=== PATIENT | female | born 1975 | race Caucasian/White ===

== ENCOUNTER 2019-10-30 13:10 | Inpatient (IN) | payer MEDICARE, MEDICAID ==
[2019-10-30 13:52] LABS: APPEARANCE,URINE SLIGHTLY-CLOUDY; BILIRUBIN,URINE NEGATIVE (NEGATIVE); COLOR,URINE YELLOW; GLUCOSE, URINE NEGATIVE (NEGATIVE); KETONES,URINE 20 mg/dL (NEGATIVE); LEUKOCYTE ESTERASE,URINE LARGE (NEGATIVE); NITRITE,URINE NEGATIVE (NEGATIVE); PROTEIN,URINE 30 mg/dL (NEGATIVE); URINE SPECIFIC GRAVITY 1.008; UROBILINOGEN,URINE NEGATIVE mg/dL (<2.0)
[2019-10-30 14:08] LABS: URINE AMPHETAMINES SCREEN NEGATIVE; URINE BARBITURATES SCREEN NEGATIVE; URINE BENZODIAZEPINES SCREEN NEGATIVE; URINE COCAINE SCREEN NEGATIVE; URINE MARIJUANA (THC) SCREEN NEGATIVE; URINE METHADONE SCREEN NEGATIVE; URINE PHENCYCLIDINE SCREEN NEGATIVE
[2019-10-30 14:24] LABS: ABSOLUTE EOSINOPHILS # (AUTO) 0.1 10^3/uL (0.0-0.6); ABSOLUTE LYMPHOCYTES (AUTO) 1.1 10^3/uL (0.5-4.7); ABSOLUTE MONOCYTES (AUTO) 0.8 10^3/uL (0.1-1.4); ABSOLUTE NEUT (AUTO) 12.6 10^3/uL (1.7-8.2); BASOPHILS % (AUTO) 0.3 % (0-2); EOSINOPHILS % (AUTO) 0.9 % (0-6); HEMATOCRIT 35.3 % (36.0-47.0); HEMOGLOBIN 12.1 g/dL (12.0-15.5); LYMPHOCYTES % (AUTO) 7.7 % (13-45); MEAN CORPUSCULAR HGB CONC 34.2 g/dL (32.0-36.0); MEAN CORPUSCULAR VOLUME 88 fl (80-97); MONOCYTES % (AUTO) 5.6 % (3-13); PLATELET COUNT 283 10^3/uL (150-450); RED BLOOD COUNT 4.03 10^6/uL (3.72-5.28); RED CELL DISTRIBUTION WIDTH 14.3 % (11.5-14.0); SEGMENTED NEUTROPHILS % (AUTO) 85.5 % (42-78); TOTAL CELLS COUNTED % (AUTO) 100 %; WHITE BLOOD COUNT 14.8 10^3/uL (4.0-10.5)
--- NOTE | 2019-10-30 15:18 | RADIOLOGY REPORT (SQ) ---
EXAM DESCRIPTION: U/S OB 14+ TRNABD 1GES W/O DOP IMAGES COMPLETED DATE/TIME: 10/30/2019 2:53 pm REASON FOR STUDY: no care COMPARISON: None. TECHNIQUE: Static and Dynamic grayscale imaging performed of gravid uterus using transabdominal appr oach. Additional selected color Doppler and spectral images recorded. All stored on PACS. LIMITATIONS: None. FINDINGS: FETUSES SEEN:1 EGA: 39 weeks 3 days Calculated using BPD,FL,HC,AC documented on images. Clinical dates unknown CHARLINE: 11/03/2019 EFW: 8 lb 3 oz PERCENTILE: Not calculated JAIME: 6.5 cm PLACENTA: Anterior and fundal. Grade 2: PRESENTATION: Cephalic. ANATOMY: HEART RATE: 157 beats per minute. FOUR CHAMBER HEART: Not confirmed THREE VESSEL CORD: Yes. CORD INSERTION: Visualized. KIDNEYS AND BLADDER: Visualized. Appear normal. STOMACH: Visualized. Appears normal. SPINE: Poorly seen. BRAIN AND LATERAL VENTRICLES: Not seen. OTHER: No other significant finding. MATERNAL ADNEXA: Maternal ovaries not visualized. CERVICAL LENGTH: Not seen. OTHER: No other significant finding. IMPRESSION: LIVING INTRAUTERINE . ESTIMATED GESTATIONAL AGE 39 weeks 3 days Anatomical survey was limited because of the advanced gestation. Trimester of : Third trimester - 28 weeks to delivery. TECHNICAL DOCUMENTATION: JOB ID: [id number] [employer]- All Rights Reserved Reading location - IP/workstation name: [email or web address]
[2019-10-30] MEDS ORDERED: RINGERS SOLUTION,LACTATED 1,000 ML IV PRN ×2 (15:35→23:52)
[2019-10-30] MEDS ORDERED: CEFAZOLIN 2 GM/D5W RTU 2 GM/50 ML RTUPB IV ONE ×3 (16:12→22:37)
--- NOTE | 2019-10-30 16:31 | Admission Physical ---
Datetime Report Generated by CPN: 10/30/2019 16:30 CURRENT ADMISSION Chief Complaint: Uterine Contractions; Suspected Ruptured Membranes Indication for Induction: Not Applicable Admit Impression : Term, Intrauterine ; Active Labor Admit Impression- Other: ? SROM 2 days ago, actim prom neg. vag exam=possible meconium Admit Plan: Admit to Unit; Initiate Labor Protocol ALLERGIES Medication Allergies: Penicillins (10/30/2019) OBSTETRICAL HISTORY EDC: 10/06/2019 00:00 : 3 Para: 2 Term: 2 : 0 SAB: 0 IAB: 0 Livin PHYSICAL EXAM General: Normal HEENT: Normal Neurologic: Normal Thyroid: Deferred Heart: Normal Lungs: Normal Breast: Deferred Back: Normal Abdomen: Normal Genitourinary Exam: Normal Extremities: Normal DTRs: Deferred Pelvic Type: Adequate Physical Exam Comments: pelvis proven to 7lb Vital Signs: Reviewed VAGINAL EXAM Dilatation: 4 Effacement: 80 Station: -1 Contraction Comments: q 5 mins MEMBRANES Pooling: Positive FETUS A EGA: 43.3 Monitoring: External US FHR- Baseline: 135 Variability: Moderate 6-25bpm Accelerations: 15X15 Decelerations: None; Early; Late; Variable FHR Category: Category II FHR Comments: ONLY SONO WAS DONE TODAY Estimated Weight (gm): 3600 Presentation: Vertex Presentation- Other: by sono Admit Comment: WITH PREVIOUS C/S WITH G1 AND SUCESSFUL WITH G2, NO CARE, GBS UNKNOWN. 43W3D BY LMP AND SONO TODAY SHOWS 39W3D. ACTIM PROM NEG, HOWEVER FLUID FROM VAGINA APPEARS MEC. REPORTS STARTED LEAKING 3 DAYS AGO. POOR HISTORIAN; WAS PLANNING UNATTENDED HOME BUT PAIN BECAME TOO INTENSE. DENIES MEDICAL HISTORY BESIDES C/S. ADMITTED-P: ANCEF FOR GBS PROPHYLAXIS, C/W DR GARCIA, ANTICIPATE INFORMED CONSENT Assignment: Jayden Garcia MD Signature: with User ID: [email or web address] : with User ID: [email or web address]
[2019-10-30] MEDS ORDERED: FENTANYL/BUPIVACAINE/NS/PF 300 MCG/150 ML RTUINJ EPI ONE (16:57)
[2019-10-30] MEDS ORDERED: EPHEDRINE SULFATE INJ 50 MG/1 ML AMPULE ONE ×2 (16:57→22:53)
[2019-10-30] MEDS ORDERED: ROPIVACAINE HCL 0.2% INJ/PF (2 MG/ML) 20 ML SDV ONE (16:58)
[2019-10-30 17:01] LABS: CHLAM PCR NOT DETECTED (NOT DETECT)
[2019-10-30] MEDS ORDERED: LIDOCAINE 1% INJ-PF (10 MG/ML) 30 ML SDV ONE (17:56)
[2019-10-30] MEDS ORDERED: OXYTOCIN 10 UNIT/ML VIAL ONE ×2 (17:56→22:53)
[2019-10-30] MEDS ORDERED: MISOPROSTOL 0.2 MG TABLET ONE (17:56)
[2019-10-30] MEDS ORDERED: OXYTOCIN/0.9 % SODIUM CHLORIDE 0 UNIT/0 ML RTUINJ ONE (17:56)
[2019-10-30] MEDS ORDERED: CITRIC ACID/SODIUM CITRATE ORAL SOLN 15 ML UDCUP ONE (22:37)
[2019-10-30] MEDS ORDERED: KETOROLAC TROMETHAMINE INJ/PF 30 MG/1 ML SDV ONE (22:53)
[2019-10-30] MEDS ORDERED: ONDANSETRON HCL INJ/PF 4 MG/2 ML SDV ONE (22:53)
[2019-10-30] MEDS ORDERED: ACETAMINOPHEN 1,000 MG/100 ML RTUPB IV ONE (22:53)
[2019-10-30] MEDS ORDERED: MIDAZOLAM 2 MG/2 ML INJ ONE (22:53)
[2019-10-30] MEDS ORDERED: OXYTOCIN/0.9 % SODIUM CHLORIDE 30 UNIT/500 ML RTUINJ ONE (22:53)
[2019-10-30] MEDS ORDERED: FENTANYL CITRATE INJ/PF 100 MCG/2 ML AMPUL ONE (22:53)
[2019-10-30] MEDS ORDERED: LIDOCAINE 2% INJ-PF (20 MG/ML) 10 ML AMPUL ONE (22:54)
[2019-10-30] MEDS ORDERED: DIPH/PERTUSS(ACELL)/TETANUS VAC/PF 0.5 ML SYR (>=10YO) IM PRN (23:52)
[2019-10-30] MEDS ORDERED: MORPHINE SULFATE 10 MG/ML INJ IM PRN (23:52)
[2019-10-30] MEDS ORDERED: ACETAMINOPHEN 1,000 MG/100 ML RTUPB IV PRN (23:52)
[2019-10-30] MEDS ORDERED: OXYTOCIN/0.9 % SODIUM CHLORIDE 30 UNIT/500 ML RTUINJ IV PRN (23:52)
[2019-10-30] MEDS ORDERED: MEASLES,MUMPS&RUBELLA VACC/PF 0.5 ML VIAL SUBCUT PRN (23:52)
[2019-10-30] MEDS ORDERED: PROMETHAZINE HCL INJ 25 MG/1 ML VIAL IV PRN (23:52)
[2019-10-30] MEDS ORDERED: ACETAMINOPHEN 325 MG TABLET PO PRN (23:52)
--- NOTE | 2019-10-30 23:58 | Operative Report ---
Operative Report DATE OF SURGERY: 10/30/19 PREOPERATIVE DIAGNOSIS: IUP at term no care on reassuring strip were repetitive late decelerations meconium POSTOPERATIVE DIAGNOSIS: Same OPERATION: Repeat low transverse section delivery of viable male 8 pounds 12 ounces SURGEON: KHALIDA KHOURY ANESTHESIA: Epidural TISSUE REMOVED OR ALTERED: Placenta COMPLICATIONS: Uterine laceration extending into the right lower uterine segment ESTIMATED BLOOD LOSS: Approximately 1400 cc PROCEDURE: The patient was taken to the operating room where spinal anesthesia was obtained and found to be adequate. She was then prepped and draped in the normal sterile fashion and placed in the dorsal supine position with a leftward tilt. A Pfannenstiel skin incision was then made and carried through to the underlying layers of the fascia with the scalpel. The fascia was incised in the midline and the incision extended laterally with the Ornelas scissors. The superior aspect of the fascial incision was then grasped with Denia clamps elevated and the underlying rectus muscles dissected off bluntly. Attention was then turned to the inferior aspect of the fascial incision which in a similar fashion was grasped, tented up with Hari clamps, and the rectus muscles dissected off bluntly. The rectus muscles were then in the midline and the peritoneum at the amount identified and entered bluntly. The peritoneal incision was then extended superiorly and inferiorly with good visualization of the bladder. [The bladder blade was inserted and the vesicouterine peritoneum identified grasped with Irish pickups and entered sharply with the Metzenbaum scissors. His incision was then extended laterally with the Metzenbaum scissors and a bladder flap created digitally. The bladder blade was then reinserted and the lower uterine segment incised in a transverse fashion with the scalpel. The uterine incision was then extended bluntly. The bladder blade was removed and the infant's head was delivered from cephalic presentation atraumatically.. Thick meconium was encountered. The nose and mouth were suctioned and the cord doubly clamped and cut. And the was handed off to waiting pediatricians. The placenta was then delivered manully and the uterus exteriorized and cleared of all clots and debris. The uterine incision was then repaired with 1-0 Vicryl in a running locked fashion. There was an extension into the right lower uterine segment. The laceration was identified and this was closed with a separate suture. A second layer of the same suture was used to obtain hemostasis via imbrication of the initial layer. The uterus was returned to the patient's abdomen. The gutters were cleared of all clots and debris. All operative sites were noted to be hemostatic. The fascia was reapproximated with 0 Vicryl in a running fashion from each lateral edge to the midline. The patient tolerated the procedure well. Sponge lap needle and instrument counts are correct -2. 2 g of Ancef were given prior to skin incision. The patient was taken to the recovery area awake and in stable condition.
[2019-10-31] MEDS ORDERED: CEFAZOLIN 1 GM/D5W RTU 1 GM/50 ML RTUPB IV ONE (01:32)
[2019-10-31] MEDS: CEFAZOLIN 1 GM/D5W RTU 1 GM/50 ML RTUPB IV SCH ×4 (01:38→12:47)
--- NOTE | 2019-10-31 02:03 | Warning Signs in Babies ---
VOD Warning Signs Datetime Report Generated by [facility]: 10/31/2019 02:03 VOD#608 -Warning Signs in Babies: Viewed with Parent(s)/Family (10/31/2019 01:05:Su Shearer RN)
--- NOTE | 2019-10-31 05:04 | Birth Certificate Data ---
Cert Data Datetime Report Generated by CPN: 10/31/2019 05:03 CERTIFICATE DATA 47a. Care: No (10/30/2019 13:29:Edgar Araiza RN) 47d. Number of Visits: 0 (10/30/2019 13:29:Edgar Araiza RN) 48a. Number of Prev Live Births: 2 (10/30/2019 13:29:Edgar Araiza RN) 48b. Now Livin (10/30/2019 13:29:Belinda Francisco RN) 48c. Live Births Now : 0 (10/30/2019 13:29:QS system process) 48d. Date of Last Live : 06/25/2017 00:00 (10/30/2019 13:29:Edgar Araiza RN) 48e. Losses: 0 (10/30/2019 13:29:Edgar Araiza RN) RISK FACTORS IN THIS 49a. Diabetes: No (10/30/2019 13:29:Edgar Araiza RN) Type of Diabetes: Type II - NIDDM (10/30/2019 13:29:Edgar Araiza RN) 49b. Hypertension: No (10/30/2019 13:29:Edgar Araiza RN) 49c. Previous Births: 0 (10/30/2019 13:29:Belinda Francisco RN) 49d. Stillborns: No (10/30/2019 13:29:Edgar Araiza RN) 49d. IUGR: Unknown (10/30/2019 13:29:Edgar Araiza RN) 49e. Infertility Treatment: No (10/30/2019 13:29:Edgar Araiza RN) 49f. Previous Cesareans: 1 (10/30/2019 13:29:Edgar Araiza RN) Mother's Height 50b. Height Inches: 64 (10/31/2019 04:31:QS system process) Mother's Weight 51b. Weight at Delivery (lbs): 229 (10/31/2019 04:31:QS system process) 52. Dt Last Normal Menses Began: 02/27/2019 00:00 (10/30/2019 13:29:Belinda Francisco RN) Infections Present/Treated 53a. Gonorrhea: No (10/30/2019 13:29:Edgar Araiza RN) Results this Hospital Visit : Negative (10/30/2019 13:29:Irene Willis RN) 53b. Syphilis: No (10/30/2019 13:29:Edgar Araiza RN) 53c. Chlamydia: No (10/30/2019 13:29:Edgar Araiza RN) Results this Hospital Visit: Negative (10/30/2019 13:29:Irene Willis RN) 53d. Hepatitis B: No (10/30/2019 13:29:Edgar Araiza RN) 53h. Mother Tested for HBsAG: Yes (10/30/2019 13:29:Irene Willis RN) 53i. Date Tested: 10/30/2019 00:00 (10/30/2019 13:29:Irene Willis RN) Obstetric Procedures 54a, b, c. Obstetric Procedures: None (10/30/2019 13:29:Edgar Araiza RN) Cigarette Smoking 55a. 3 Months Before Preg - Ci (10/30/2019 13:29:Edgar Araiza RN) 55a. Packs: 0 (10/30/2019 13:29:Edgar Araiza RN) 55b. 1st Trimester of Preg- Ci (10/30/2019 13:29:Edgar Araiza RN) 55b. Packs: 0 (10/30/2019 13:29:Edgar Araiza RN) 55c. 2nd Trimester of Preg- Ci (10/30/2019 13:29:Edgar Araiza RN) 55c. Packs: 0 (10/30/2019 13:29:Edgar Araiza RN) 55d. 3rd Trimester of Preg- Ci (10/30/2019 13:29:Edgar Araiza RN) 55d. Packs: 0 (10/30/2019 13:29:Edgar Araiza RN) Onset of Labor 56b. Precipitous Labor <3 Hrs: 5 (10/30/2019:29:QS system process) 56c. Prolonged Labor > 20 Hrs: 5 (10/30/2019 13:29:QS system process) 57a. Induction of Labor: N/A (10/30/2019::Su Shearer RN) 57c. Non-Vertex Presentation A: Vertex (10/30/2019:Irene Willis RN) 57d. Steroids - Lung Mat: None (10/30/2019::Su Shearer RN) 57d. Steroids - Lung Mat: Not Applicable (10/30/2019:29:Su Shearer RN) 57e. Antibiotics During Labor: 10/30/2019 16:26 (10/30/2019::Su Shearer RN) 57f. Mat [place] or Temp >100.4: 99.1 (10/30/2019::Irene Willis RN) 57g. Moderate/Heavy Meconium: Light Meconium (10/30/2019:29:Irene Willis RN) 57h. Intolerance of Labor: Nonreassuring Status (10/30/2019::Irene Willis RN) 57i. Epidural/Spinal Anesthesia: Epidural (10/30/2019 13:29:Su Shearer RN) Method of Delivery 58a. Forceps - Unsuccessful A: N/A (10/30/2019 13:29:Irene Willis RN) 58b. Vacuum - Unsuccessful A: N/A (10/30/2019 13:29:Irene Willis RN) 58c. Presentation at 58c. Presentation at - A : Vertex (10/30/2019 13:29:Irene Willis RN) 58c. Presentation at - A : N/A (10/30/2019 13:29:Su Shearer RN) 58c. Presentation at - A : Cephalic (10/30/2019 18:01:Edgar Araiza RN) Final Route and Method of Del 58d. Baby A Route/Delivery: (10/30/2019 13:29:Irene Willis RN) 58e. Trial of Labor Attempted: Yes (10/30/2019 13:29:Su Shearer RN) 58e. Trial of Labor Attempted A: Failed (10/30/2019 13:29:Irene Willis RN) 58e. Trial of Labor Attempted B: N/A (10/30/2019 13:29:Su Shearer RN) Maternal Morbidity 59b. 3rd or 4th Degree Lacs: None (10/30/2019 13:29:Irene Willis RN) Birthweight Baby A: 3970 (10/30/2019 13:29:Tory Pavon RN) 60a. Pounds : 8 (10/30/2019 13:29:QS system process) 60b. Ounces: 12 (10/30/2019 13:29:QS system process) 61. GA at Delivery Baby A: 43.4 (10/30/2019 13:29:Irene Willis RN) : Post Term- >= 42 Weeks (10/30/2019 13:29:QS system process) 62a. 5 Minute Baby A: 9 (10/30/2019 13:29:QS system process)
--- NOTE | 2019-10-31 05:04 | Delivery Summary ---
Del Sum A-C Datetime Report Generated by CPN: 10/31/2019 05:03 DELIVERY PERSONNEL DELIVERY PERSONNEL: [id number] Delivery Doctor:: Jayden Garcia MD GLUE JOINTER FEEDER:: Ricardo Aguilar, GLUE JOINTER FEEDER Iron Installer:: Su Shearer, RN Claim Inspector/PATTERN LAYOUT WORKER: Clare Green, ST Claim Inspector/PATTERN LAYOUT WORKER: Jose Alfredokeaton Clifton, CREDENTIALING MANAGER MATERNAL INFORMATION Delivery Anesthesia: Epidural Medications After Delivery: Pitocin 30 Units in 500ml NS/D5W Delivery QBL: 945 Maternal Complications: None LABOR SUMMARY EDC: 10/06/2019 00:00 No. Babies in Womb: 1 Attempted: Yes Labor Anesthesia: Epidural LABOR INFORMATION Reason for Induction: Not Applicable Onset of Labor: 10/30/2019 18:01 Oxytocin: N/A Group B Beta Strep: unknown Antibiotics # of Doses: 1 Antibiotics Time of Last Dose: 10/30/2019 16:26 Name of Antibiotic Given: cefazolin Steroids Given: None Reason Steroids Not Administered: Not Applicable MEMBRANES Membranes Rupture Method: Spontaneous Amniotic Fluid Color: Light Meconium Amniotic Fluid Amount: Scant Amniotic Fluid Odor: Normal STAGES OF LABOR Stage 3 hr: 0 Stage 3 min: 1 Total Time in Labor hr: 5 Total Time in Labor min: 19 VAGINAL DELIVERY Episiotomy: None Laceration #1: None Laceration Extension #1: N/A Laceration Repair: Not Applicable Sponge Count Correct: N/A Sharps Count Correct: N/A CSECTION DELIVERY Primary Indication: Nonreassuring Status CSection Urgency: Non-Scheduled CSection Incidence: Repeat Labor: Labor Elective: Failed CSection Incision: Lower Uterine Transverse BABY A INFORMATION Delivery Date/Time: 10/30/2019 23:19 Method of Delivery: Nurse Controlled Delivery: No Born in Route : No : Failed Forceps: N/A Vacuum Extraction: N/A Shoulder Dystocia : No PRESENTATION/POSITION BABY A Presentation: Cephalic Cephalic Presentation: Vertex Breech Presentation: N/A PLACENTA INFORMATION BABY A Placenta Delivery Time : 10/30/2019 23:20 Placenta Method of Delivery: Manual Removal Placenta Status: Delivered SCORES BABY A Heart Rate 1 min: >100 bpm Resp Effort 1 min: Slow, Irregular Reflex Irritability 1 min: Cough or Sneeze or Pulls Away Muscle Tone 1 min: Active Motion Color 1 min: Body [place], Extremities Blue SCORE 1 MIN: 8 Heart Rate 5 min: >100 bpm Resp Effort 5 min: Good Cry Reflex Irritability 5 min: Cough or Sneeze or Pulls Away Muscle Tone 5 min: Active Motion Color 5 min: Body [place], Extremities Blue SCORE 5 MIN: 9 INFANT INFORMATION BABY A Gestational Age at Delivery: 43.4 Gestational Status: Post Term- >= 42 Weeks Infant Outcome : Liveborn Condition : Stable Infant Sex: Male IDENTIFICATION BABY A Infant Verification Date/Time: 10/31/2019 00:12 ID Band Number: [id number] Mother's Name Verified: Yes Infant RN Verifying : H. Librado, RN and M. Shearer, RN WEIGHT/LENGTH BABY A Infant Birthweight (gm): 3970 Infant Weight (lb): 8 Infant Weight (oz): 12 Infant Length (in): 22.00 Infant Length (cm): 55.88 CORD INFORMATION BABY A No. Cord Vessels: 3 Nuchal Cord : N/A Cord Blood Taken: Yes-For Eval (Mom's Blood Type - or O+) Suction: Mouth ASSESSMENT BABY A Infant Complications: Multiple Late Decels; Meconium Physical Findings at Delivery: Caput Succedaneum; Other Infant Respirations: Appears Normal Skin to Skin: Yes Infant Care By: Lizabeth Pavon RN Transferred To: [place] [facility] BABY B INFORMATION : N/A SIGNATURES Signature: with User ID: [email or web address] : I was personally available for consultation and serving as supervising physician for the MLP.
[2019-10-31] MEDS ORDERED: ACETAMINOPHEN 325 MG TABLET ONE (06:27)
[2019-10-31] MEDS ORDERED: KETOROLAC TROMETHAMINE INJ/PF 30 MG/1 ML SDV ONE (07:26)
[2019-10-31] MEDS ORDERED: MORPHINE SULFATE 10 MG/ML INJ ONE (07:26)
[2019-10-31] MEDS: KETOROLAC TROMETHAMINE INJ/PF 30 MG/1 ML SDV IV SCH ×2 (07:29→13:50)
[2019-10-31] MEDS ORDERED: MORPHINE SULFATE 10 MG/ML INJ IV PRN (07:31)
[2019-10-31 08:38] LABS: HEPATITIS C VIRUS AB <0.1 s/co ratio (0.0-0.9)
[2019-10-31 08:43] LABS: HEPATITS B SURFACE ANTIGEN Negative (Negative)
[2019-10-31] MEDS: DOCUSATE SODIUM 100 MG CAPSULE PO SCH ×2 (09:16→17:15)
[2019-10-31] MEDS: PRENATAL VITAMIN W DHA CAPSULE PO SCH (09:16)
--- NOTE | 2019-10-31 12:36 | PDOC PROGRESS REPORT ---
Subjective-OB Progress Note for:: 10/31/19 Subjective: Pt doing well, no concerns. Shehas FC to BSD, has not been out of bed yet. Denies pain, reports reg diet. Physical Exam (OB) Vital Signs: Temp Pulse Resp BP Pulse Ox 97.5 F 79 18 114/69 100 10/31/19 08:15 10/31/19 08:15 10/31/19 08:15 10/31/19 08:15 10/31/19 08:15 Intake & Output 10/30/19 10/31/19 11/01/19 06:59 06:59 06:59 Intake Total 350 Balance 350 Weight 103.6 kg - Dressing Removed: No Incision: Well Approximated Closure Type: Pressure - Maternal Morbidity 59. Maternal Morbidity (serious complications experinced by the mother associated with labor and delivery: None of the above - Lochia Lochia Amount: Scant < 10 ml - Abdomen Description: Tender, Soft Hernia Present: No Fundal Description: Firm, Midline Fundal Height: u/u - u/2 Objective-Diagnostic Laboratory: 10/30/19 14:01 10/30/19 10/30/19 10/30/19 13:35 14:01 14:01 WBC 14.8 H RBC 4.03 Hgb 12.1 Hct 35.3 L MCV 88 MCH 30.0 MCHC 34.2 RDW 14.3 H Plt Count 283 Seg Neutrophils % 85.5 H Urine Color YELLOW Urine Appearance SLIGHTLY-CLOUDY Urine pH 7.0 Ur Specific [place] 1.008 Urine Protein 30 H Urine Glucose (UA) NEGATIVE Urine Ketones 20 H Urine Blood LARGE H Urine Nitrite NEGATIVE Ur Leukocyte Esterase LARGE H Blood Type O POSITIVE Antibody Screen NEGATIVE Assessment and Plan(PN) - Assessment and Plan (1) Failed trial of labor following previous , delivered Is this a current diagnosis for this admission?: Yes (2) History of delivery Is this a current diagnosis for this admission?: Yes (3) No care in current Qualifiers: Trimester: first trimester Qualified Code(s): O09.31 - Supervision of with insufficient care, first trimester Is this a current diagnosis for this admission?: Yes (4) Non-reassuring electronic monitoring tracing Is this a current diagnosis for this admission?: Yes (5) S/P repeat low transverse Is this a current diagnosis for this admission?: Yes - Time Spent with Patient Time with patient: Less than 15 minutes Medications reviewed and adjusted accordingly: Yes - Disposition Anticipated Discharge Disposition: Home, Self Care Anticipated Discharge Timeframe: within 24 hours
[2019-10-31] MEDS: OXYCODONE-ACETAMINOPHEN 5-325 MG TABLET PO PRN ×3 (12:50→23:51)
[2019-10-31] MEDS: SIMETHICONE 80 MG TAB.CHEW PO PRN (13:50)
[2019-10-31] MEDS: IBUPROFEN 800 MG TABLET PO SCH (23:50)
[2019-11-01] MEDS: OXYCODONE-ACETAMINOPHEN 5-325 MG TABLET PO PRN ×3 (04:00→19:00)
[2019-11-01] MEDS: IBUPROFEN 800 MG TABLET PO SCH ×3 (05:08→18:59)
[2019-11-01] MEDS: SIMETHICONE 80 MG TAB.CHEW PO PRN (09:29)
[2019-11-01] MEDS: PRENATAL VITAMIN W DHA CAPSULE PO SCH (09:29)
[2019-11-01] MEDS: DOCUSATE SODIUM 100 MG CAPSULE PO SCH ×2 (09:30→19:01)
--- NOTE | 2019-11-01 11:22 | PDOC PROGRESS REPORT ---
Subjective-OB Progress Note for:: 11/01/19 Subjective: Pt doing well, reports light bleeding, + flatus, reg diet and no difficulty voiding. No concerns. Physical Exam (OB) Vital Signs: Temp Pulse Resp BP Pulse Ox 97.7 F 67 16 109/63 99 11/01/19 07:15 11/01/19 07:15 11/01/19 07:15 11/01/19 07:15 11/01/19 07:15 Intake & Output 10/31/19 11/01/19 11/02/19 06:59 06:59 06:59 Intake Total 1150 Output Total 1750 Balance -600 Weight 103.6 kg - Dressing Removed: No Incision: Dressing Closure Type: pressure - Maternal Morbidity 59. Maternal Morbidity (serious complications experinced by the mother associated with labor and delivery: None of the above - Lochia Lochia Amount: Small 10-25 ml Lochia Color: Rubra/Red - Abdomen Description: Soft Hernia Present: No Fundal Description: Firm, Midline Fundal Height: u/u - u/2 Objective-Diagnostic Laboratory: 10/30/19 15:12 Vaginal/Anorectal Group B Streptococcus Culture - Final GROUP B BETA HEMOLYTIC STREPTOCOCCUS RECOVERED Assessment and Plan(PN) - Assessment and Plan (1) Failed trial of labor following previous , delivered Is this a current diagnosis for this admission?: Yes (2) History of delivery Is this a current diagnosis for this admission?: Yes (3) No care in current Qualifiers: Trimester: first trimester Qualified Code(s): O09.31 - Supervision of with insufficient care, first trimester Is this a current diagnosis for this admission?: Yes (4) Non-reassuring electronic monitoring tracing Is this a current diagnosis for this admission?: Yes (5) S/P repeat low transverse Is this a current diagnosis for this admission?: Yes - Time Spent with Patient Time with patient: Less than 15 minutes Medications reviewed and adjusted accordingly: Yes - Disposition Anticipated Discharge Disposition: Home, Self Care Anticipated Discharge Timeframe: within 24 hours
[2019-11-01 11:28] LABS: ABSOLUTE EOSINOPHILS # (AUTO) 0.4 10^3/uL (0.0-0.6); ABSOLUTE LYMPHOCYTES (AUTO) 1.6 10^3/uL (0.5-4.7); ABSOLUTE MONOCYTES (AUTO) 0.8 10^3/uL (0.1-1.4); ABSOLUTE NEUT (AUTO) 7.4 10^3/uL (1.7-8.2); BASOPHILS % (AUTO) 0.3 % (0-2); EOSINOPHILS % (AUTO) 3.4 % (0-6); HEMATOCRIT 24.5 % (36.0-47.0); LYMPHOCYTES % (AUTO) 16.1 % (13-45); MEAN CORPUSCULAR HEMOGLOBIN 30.6 pg (27.0-33.4); MEAN CORPUSCULAR HGB CONC 34.9 g/dL (32.0-36.0); MEAN CORPUSCULAR VOLUME 88 fl (80-97); MONOCYTES % (AUTO) 7.9 % (3-13); PLATELET COUNT 264 10^3/uL (150-450); RED CELL DISTRIBUTION WIDTH 14.5 % (11.5-14.0); SEGMENTED NEUTROPHILS % (AUTO) 72.3 % (42-78); TOTAL CELLS COUNTED % (AUTO) 100 %; WHITE BLOOD COUNT 10.2 10^3/uL (4.0-10.5)
[2019-11-01 11:45] LABS: HEMOGLOBIN 8.5 g/dL (12.0-15.5)
[2019-11-02] MEDS: IBUPROFEN 800 MG TABLET PO SCH ×3 (00:57→11:51)
[2019-11-02] MEDS: PRENATAL VITAMIN W DHA CAPSULE PO SCH (09:38)
[2019-11-02] MEDS: DOCUSATE SODIUM 100 MG CAPSULE PO SCH (09:38)
--- NOTE | 2019-11-02 10:09 | PDOC DISCHARGE SUMMARY ---
Impression - Admit/DC Date/PCP Admission Date/Primary Care Provider: 10/30/19 15:02 Discharge Date: 11/02/19 - Discharge Diagnosis (1) Failed trial of labor following previous , delivered Is this a current diagnosis for this admission?: Yes (2) History of delivery Is this a current diagnosis for this admission?: Yes (3) No care in current Is this a current diagnosis for this admission?: Yes (4) Non-reassuring electronic monitoring tracing Is this a current diagnosis for this admission?: Yes (5) S/P repeat low transverse Is this a current diagnosis for this admission?: Yes - Additional Information Home Medications: No Home Medications 10/30/19 HPI Gestational Age: 40+ Reason(s) for Admission: Onset of Labor, Ceasarean Section-Repeat, PROM Admission Note: failed SHIELA Procedures: NST Intrapartum Procedure(s): : Low Cervical, Transverse Hospital Course 59. Maternal Morbidity (serious complications experinced by the mother associated with labor and delivery: None of the above Results Laboratory Results: WBC 10.2 10^3/uL (4.0-10.5) 11/01/19 11:07 RBC 2.80 10^6/uL (3.72-5.28) L 11/01/19 11:07 Hgb 8.5 g/dL (12.0-15.5) L D 11/01/19 11:07 Hct 24.5 % (36.0-47.0) L 11/01/19 11:07 MCV 88 fl (80-97) 11/01/19 11:07 MCH 30.6 pg (27.0-33.4) 11/01/19 11:07 MCHC 34.9 g/dL (32.0-36.0) 11/01/19 11:07 RDW 14.5 % (11.5-14.0) H 11/01/19 11:07 Plt Count 264 10^3/uL (150-450) 11/01/19 11:07 Lymph % (Auto) 16.1 % (13-45) 11/01/19 11:07 Morrison % (Auto) 7.9 % (3-13) 11/01/19 11:07 Eos % (Auto) 3.4 % (0-6) 11/01/19 11:07 Baso % (Auto) 0.3 % (0-2) 11/01/19 11:07 Absolute Neuts (auto) 7.4 10^3/uL (1.7-8.2) 11/01/19 11:07 Absolute Lymphs (auto) 1.6 10^3/uL (0.5-4.7) 11/01/19 11:07 Absolute Monos (auto) 0.8 10^3/uL (0.1-1.4) 11/01/19 11:07 Absolute Eos (auto) 0.4 10^3/uL (0.0-0.6) 11/01/19 11:07 Absolute Basos (auto) 0.0 10^3/uL (0.0-0.2) 11/01/19 11:07 Seg Neutrophils % 72.3 % (42-78) 11/01/19 11:07 Urine Color YELLOW 10/30/19 13:35 Urine Appearance SLIGHTLY-CLOUDY 10/30/19 13:35 Urine pH 7.0 (5.0-9.0) 10/30/19 13:35 Ur Specific [place] 1.008 10/30/19 13:35 Urine Protein 30 mg/dL (NEGATIVE) H 10/30/19 13:35 Urine Glucose (UA) NEGATIVE mg/dL (NEGATIVE) 10/30/19 13:35 Urine Ketones 20 mg/dL (NEGATIVE) H 10/30/19 13:35 Urine Blood LARGE (NEGATIVE) H 10/30/19 13:35 Urine Nitrite NEGATIVE (NEGATIVE) 10/30/19 13:35 Urine Bilirubin NEGATIVE (NEGATIVE) 10/30/19 13:35 Urine Urobilinogen NEGATIVE mg/dL (<2.0) 10/30/19 13:35 Ur Leukocyte Esterase LARGE (NEGATIVE) H 10/30/19 13:35 Urine Ascorbic Acid NEGATIVE (NEGATIVE) 10/30/19 13:35 Membranes Rupture NEGATIVE (NEGATIVE) 10/30/19 14:18 Urine Opiates Screen NEGATIVE 10/30/19 13:35 Urine Methadone Screen NEGATIVE 10/30/19 13:35 Ur Barbiturates Screen NEGATIVE 10/30/19 13:35 Ur Phencyclidine Scrn NEGATIVE 10/30/19 13:35 Ur Amphetamines Screen NEGATIVE 10/30/19 13:35 U Benzodiazepines Scrn NEGATIVE 10/30/19 13:35 Urine Cocaine Screen NEGATIVE 10/30/19 13:35 U Marijuana (THC) Screen NEGATIVE 10/30/19 13:35 RPR NONREACTIVE (NONREACTIVE) 10/30/19 14:01 Chlamydia DNA (PCR) NOT DETECTED (NOT DETECT) 10/30/19 15:12 Hep Bs Antigen Negative (Negative) 10/30/19 14:01 Hepatitis C (QUAN) <0.1 s/co ratio (0.0-0.9) 10/30/19 14:01 Hep C Verif Com 1 Comment (.) 10/30/19 14:01 HIV 1&2 Antibody NEGATIVE (NEGATIVE) 10/30/19 14:01 N.gonorrhoeae DNA (PCR) NOT DETECTED (NOT DETECT) 10/30/19 15:12 Rubella IgG Antibody 4.64 IU/mL 10/30/19 14:01 Rubella IgG Ab Interp NEGATIVE 10/30/19 14:01 Blood Type O POSITIVE 10/30/19 14:01 Antibody Screen NEGATIVE 10/30/19 14:01 Impressions: Obstetrics Ultrasound 10/30/19 00:00 IMPRESSION: LIVING INTRAUTERINE . ESTIMATED GESTATIONAL AGE 39 weeks 3 days Anatomical survey was limited because of the advanced gestation. Trimester of : Third trimester - 28 weeks to delivery. Plan Plan of Treatment: f/u at [facility] next week for surgery check Time Spent: Less than 30 Minutes
[2019-11-02 11:34] VITALS: BP 102/48
== END 2019-11-02 13:20 | disposition home or self-care (01) | DRG 788 ==
LOC: EDBD 13:10 → LC 13:10 → LR 15:02 → UNDODISIN 10-31 03:51 → 2S 10-31 08:01
PROVIDERS: ADMIT Obstetrics & Gynecology Gynecology; ATTEND Obstetrics & Gynecology Gynecology
PROC: 10D00Z1 Extraction of Products of Conception, Low, Open Approach (ICD-10-PCS; principal; 2019-10-30)
DX: O76 Abnormality in fetal heart rate and rhythm complicating labor and delivery (principal); O48.1 Prolonged pregnancy; O77.0 Labor and delivery complicated by meconium in amniotic fluid; O66.41 Failed attempted vaginal birth after previous cesarean delivery; Z3A.49 Greater than 42 weeks gestation of pregnancy; Z37.0 Single live birth
CPT/HCPCS: 1967; 1968; 36415; 76805; 80307; 81005; 84112; 85025; 86592; 86701; 86762; 86803; 86804; 86850; 86900; 86901; 87077; 87081; 87340; 87491; 87591; 88307; 94760; 94799; 99140; J0131; J0690; J1885; J2250; J2270; J2405; J2590; J2795; J3010; J3490